=== PATIENT | male | born 1975 | race Caucasian/White ===

== ENCOUNTER 2025-04-29 15:03 | Emergency (ER) | payer BC, OTHER ==
[2025-04-29] MEDS: Diatrizoate Meglumine/Diatrizoate Sodium 37% 120 ML Bottle PO ONE (16:14)
== END 2025-04-29 18:00 | disposition home or self-care (01) ==
LOC: JD.ED 15:03
DX: K56.1 Intussusception (principal)
CPT/HCPCS: 74176; 99284; Q9963